=== PATIENT | male | born 1985 | race Caucasian/White ===

== ENCOUNTER 2016-11-02 11:52 | Emergency (ER) | payer BC ==
[~2016-11-02] VITALS: Ht 182.9 cm; Wt 78.5 kg
[2016-11-02 12:32] VITALS: BP 131/84
--- NOTE | 2016-11-02 12:53 | Emergency Room Report ---
History of Present Illness General Chief Complaint: Flu Like Symptoms Source: Patient Present Illness HPI 31-year-old male presents emergency department with intermittent productive cough, sore throat, nasal congestion, chest congestion times one week. Patient denies recent travel or ill contacts. Patient reports chills denies fevers. Patient denies history of immunocompromise or significant past medical history. Patient states he's been utilizing [id number] medications with no relief. Patient states he is up-to-date with vaccinations. Patient denies abdominal pain, nausea, vomiting, headache, neck stiffness or neck pain. Denies CP, Palpitations, LOC, AMS, dizziness, Changes in Vision, Sensation, paresthesias, or a sudden severe headache. Allergies: Coded Allergies: No Known Allergies (Unverified , 11/02/16) Patient History Past Medical History: see triage record Past Surgical History: none Pertinent Family History: none Immunizations: UTD Reviewed Nursing Documentation: PMH: Agreed, PSxH: Agreed Nursing Documentation-PMH Past Medical History: No Stated History Review of Systems All Other Systems: negative except mentioned in HPI Physical Exam Vital Signs Date Time Temp Pulse Resp B/P Pulse Ox O2 Delivery O2 Flow Rate FiO2 11/02/16 12:20 99.0 91 18 131/84 98 Room Air Sp02 EP Interpretation: reviewed, normal General Appearance: no apparent distress, alert, GCS 15, non-toxic Head: normocephalic, atraumatic Eyes: bilateral eye PERRL, bilateral eye normal inspection ENT: hearing grossly normal, normal pharynx, no angioedema, normal voice, TMs + canals normal, uvula midline, moist mucus membranes, nasal congestion, pharyngeal erythema Neck: full range of motion, supple/symm/no masses Respiratory: chest non-tender, lungs clear, normal breath sounds, speaking full sentences Cardiovascular #1: regular rate, rhythm, no edema Rectal: deferred Musculoskeletal: back normal, gait/station normal, normal range of motion, non- tender, no calf tenderness Neurologic: alert, oriented x3, responsive, motor strength/tone normal, sensory intact, speech normal Psychiatric: judgement/insight normal, memory normal, mood/affect normal, no suicidal/homicidal ideation Skin: normal color, no rash, warm/dry, well hydrated Lymphatic: no adenopathy Medical Decision Making PA Attestation Dr. Swift is my supervising Physician whom patient management has been discussed with. Diagnostic Impression: Primary Impression: Upper respiratory infection, acute ER Course Pt. presents to the ED c/o intermittent productive cough, sore throat, nasal congestion, chest congestion times one week. Ddx considered but are not limited to URI, pneumonia, PE, strep pharyngitis, meningitis. Vital signs: Pt. is afebrile, the remaining VS are WNL H&PE are most consistent with URI- no meningeal signs, oropharynx is not involved, no evidence of bacterial infection at this time. ORDERS: none required at this time, the diagnosis is clinical ED INTERVENTIONS: None required at this time. DISCHARGE: At this time pt. is stable for d/c to home. Will provide printed patient care instructions, and any necessary prescriptions. Care plan and follow up instructions have been discussed with the patient prior to discharge. Last Vital Signs Date Time Temp Pulse Resp B/P Pulse Ox O2 Delivery O2 Flow Rate FiO2 11/02/16 12:32 91 18 Room Air 11/02/16 12:32 99.0 131/84 98 Disposition: HOME, SELF-CARE Condition: Stable Scripts Albuterol Sulfate* (ALBUTEROL SULFATE MDI*) 8.5 Gm Hfa.aer.ad 2 PUFF INH Q3H, #1 INH 0 Refills Prov: Tiffany Poon 11/02/16 Guaifenesin (Guaifenesin) 1,200 Mg Tab.er.12h 1200 MG PO BID for 7 Days, #14 TAB Prov: Tiffany Poon 11/02/16 Codeine/Promethazine Hcl* (PROMETHAZINE-CODEINE SYRUP*) 118 Ml Syrup 5 ML ORAL Q6H Y for For Cough, #118 ML 0 Refills Prov: Tiffany Poon 11/02/16 Referrals: NOT CHOSEN IPA/,REFERRING (PCP) Patient Instructions: Upper Respiratory Infection, Adult, [id number] Additional Instructions: Take medications as directed. Follow up with PCP in 3-5 days Return sooner to ED if new symptoms occur, or current symptoms become worse. Do not drink alcohol, drive, or operate heavy machinery while taking Cough Syrup as this may cause drowsiness. Tiffany Poon Nov 02, 2016 12:53
[2016-11-02] MEDS ORDERED: PROMETHAZINE-C118 M1 ORAL (12:57)
[2016-11-02] MEDS ORDERED: GUAIFENESIN1200 MG PO (12:57)
[2016-11-02] MEDS ORDERED: ZITHROMAX250 MG ORAL (12:57)
[2016-11-02] MEDS ORDERED: ALBUTEROL SULF8.5 GM INH (13:00)
[2016-11-02 13:14] VITALS: BP 131/84
== END 2016-11-02 13:25 | disposition home or self-care (01) ==
LOC: EMR 12:29
DX: J06.9 Acute upper respiratory infection, unspecified (principal)
CPT/HCPCS: 99284